=== PATIENT | male | born 1965 | race Caucasian/White ===

== ENCOUNTER 2018-05-13 17:25 | Emergency (ER) | payer OTHER ==
--- NOTE | 2018-05-13 18:43 | CT Report ---
Reason: "worst CLARKE of life" Procedure Date: 05/13/2018 Accession Number: [id number] / [id number] Procedure: CT - Head W/O CPT Code: FULL RESULT: EXAM: CT HEAD WITHOUT CONTRAST. EXAM DATE: 05/13/2018 06:31 PM. CLINICAL HISTORY: Worst headache of life, retro-orbital pain, since yesterday. COMPARISON: None. TECHNIQUE: Multiaxial CT images were obtained from the foramen magnum to the vertex. Reformats: Coronal. IV contrast: None. In accordance with CT protocol optimization, one or more of the following dose reduction techniques were utilized for this exam: automated exposure control, adjustment of mA and/or KV based on patient size, or use of iterative reconstructive technique. FINDINGS: Parenchyma: No intraparenchymal hemorrhage. No evidence of mass, midline shift, or CT findings of infarction. Jeter-white differentiation is distinct. Extraaxial Spaces: Normal for age. No subdural or epidural collections identified. Ventricles: Normal in size and position. Sinuses and Orbits: Imaged paranasal sinuses, orbits, and mastoids show no significant abnormality. Bones: No evidence of fracture or calvarial defect. Other: None. IMPRESSION: Normal head CT. RADIA
[2018-05-13 20:30] VITALS: BP 147/98
[2018-05-13] MEDS ORDERED: IBUPROFEN 600 MG TABLET PO STA (20:35)
[2018-05-13] MEDS ORDERED: ACETAMINOPHEN 500 MG TABLET PO STA (20:36)
--- NOTE | 2018-05-13 20:41 | ED Physician Documentation ---
PD HPI HEADACHE - Stated complaint Stated Complaint: HEADACHE - Chief complaint Chief Complaint: Neuro - History obtained from History obtained from: Patient - History of Present Illness Timing - onset: How many days ago (2) Timing - details: Gradual onset, Still present Location: Global Quality: Throbbing, Aching. No: Thunderclap, Like head is exploding Associated symptoms: No: Fever, Stiff neck, Nausea, Vomiting Similar symptoms before: Has not had sx before Recently seen: Not recently seen - Additional information Additional information: Patient is a 52 year old male with no significant past medical history who is presenting to the emergency department for headache. Patient states that he has been under a lot of stress over the last few days and he slowly developed a generalized headache. patient denies any fever, chills, neck pain, syncope, shortness of breath or neurological deficit. Review of Systems Ten Systems: 10 systems reviewed and negative Neurologic: reports: Headache. denies: Confused, Head injury, LOC PD PAST MEDICAL HISTORY - Past Medical History Cardiovascular: Hypertension Endocrine/Autoimmune: Type 2 diabetes - Past Surgical History Past Surgical History: Yes - Present Medications Home Medications: Ambulatory Orders Medication Instructions Recorded Confirmed Aspirin [Aspir-Low] 81 mg PO DAILY 12/24/15 12/24/15 Atorvastatin [Lipitor] 20 mg PO DAILY 12/24/15 12/24/15 Gabapentin [Neurontin] 300 mg PO DAILY 12/24/15 12/24/15 Ibuprofen [Motrin] 800 mg PO Q8H PRN #30 tablet 12/24/15 Lisinopril 20 mg PO DAILY 12/24/15 12/24/15 metFORMIN [Glucophage] 2,000 mg PO DAILY 12/24/15 12/24/15 - Allergies Allergies/Adverse Reactions: Allergies Allergy/AdvReac Type Severity Reaction Status Date / Time latex Allergy Unknown Rash Verified 01/13/13 17:31 - Social History Does the pt smoke?: No Smoking Status: Never smoker Does the pt drink ETOH?: No Does the pt have substance abuse?: No - Immunizations Immunizations: TDAP >10years/unknown PD ED PE NORMAL - Vitals Vital signs reviewed: Yes - General General: Alert and oriented X 3 - HEENT HEENT: Atraumatic, PERRL, Moist mucous membranes - Neck Neck: Supple, no meningeal sign - Cardiac Cardiac: RRR - Respiratory Respiratory: No respiratory distress - Abdomen Abdomen: Soft - Derm Derm: Normal color, Warm and dry - Extremities Extremities: No deformity - Neuro Neuro: Alert and oriented X 3, 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 Patient had already had a ct in triage that was within normal limits. Upon initial evaluation patient stated that he just wanted to go home and sleep there. Patient had no focal deficits, no menigeal signs or no history consistent with sub arachnoid hemorrhage. Patient was stable for discharge and outpatient follow up. - Sepsis Event Vital Signs: Vital Signs - 24 hr 05/13/18 05/13/18 17:34 20:28 Temperature 36.6 C Heart Rate 77 72 Respiratory 20 18 Rate Blood Pressure 140/83 H 147/98 H O2 Saturation 98 100 Oxygen O2 Source Room air Departure - Departure Disposition: 01 Home, Self Care Clinical Impression: Headache Condition: Good Instructions: ED Cephalgia Unspecified Follow-Up: VAN TOSCANO MD [Primary Care Provider] - Within 3 Days Comments: Two of the greatest triggers for headaches are dehydration and lack of sleep. It is important that you stay hydrated and get plenty of rest. you should take ibuprofen 600mg and tylenol 1000mg every 6 hours as needed for pain. You should follow up with your doctor if your symptoms don't improve. You may return to the emergency department at any time for new, worsening or uncontrollable symptoms. Forms: Activity restrictions
== END 2018-05-13 21:03 | disposition home or self-care (01) ==
LOC: ED 17:25
DX: R51 Headache (principal); I10 Essential (primary) hypertension; E11.9 Type 2 diabetes mellitus without complications; Z79.84 Long term (current) use of oral hypoglycemic drugs
CPT/HCPCS: 70450; 99283; A9270

== ENCOUNTER 2018-12-17 13:09 | Emergency (ER) | payer OTHER ==
--- NOTE | 2018-12-17 14:54 | ED Physician Documentation ---
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 The saw fell from the wall and a chain saw tooth lacerated his right cheek. The saw was not running. He did not have any involvement to his eye he has some scrapes to his face he was not knocked unconscious he is come in here now for repair. Review of Systems Constitutional: denies: Fever Eyes: denies: Decreased vision Ears: denies: Ear pain Nose: denies: Rhinorrhea / runny nose, Congestion Throat: denies: Sore throat Respiratory: denies: Cough GI: denies: Vomiting PD PAST MEDICAL HISTORY - Past Medical History Cardiovascular: Hypertension Endocrine/Autoimmune: Type 2 diabetes - Past Surgical History Past Surgical History: Yes - Present Medications Home Medications: Ambulatory Orders Medication Instructions Recorded Confirmed Aspirin [Aspir-Low] 81 mg PO DAILY 12/24/15 12/24/15 Atorvastatin [Lipitor] 20 mg PO DAILY 12/24/15 12/24/15 Lisinopril 20 mg PO DAILY 12/24/15 12/24/15 metFORMIN [Glucophage] 2,000 mg PO DAILY 12/24/15 12/24/15 Atenolol 50 mg DAILY 12/17/18 12/17/18 - Allergies Allergies/Adverse Reactions: Allergies Allergy/AdvReac Type Severity Reaction Status Date / Time latex Allergy Unknown Rash Verified 01/13/13 17:31 bee venom protein (honey bee) Allergy Anaphylaxis Verified 12/17/18 13:21 - Social History Does the pt smoke?: No Smoking Status: Never smoker Does the pt drink ETOH?: No Does the pt have substance abuse?: No - Immunizations Immunizations: TDAP >10years/unknown PD ED PE NORMAL - Vitals Vital signs reviewed: Yes (hypertnesive ) - General General: Alert and oriented X 3, No acute distress, Well developed/nourished - HEENT HEENT: PERRL, EOMI, Other (There is an abrasion to the right cheeck over the medial aspect of the upper cheek 1.5 cm and superficial. 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, No motor deficit, No sensory deficit, Normal speech Eye Opening: Spontaneous Motor: Obeys Commands Verbal: Oriented GCS Score: 15 - Psych Psych: Normal mood, Normal affect Results - Vitals Vitals: Vital Signs - 24 hr 12/17/18 13:13 Temperature 36.5 C Heart Rate 78 Respiratory 16 Rate Blood Pressure 132/92 H O2 Saturation 96 Oxygen O2 Source Room air Procedures - Laceration (location) right cheek Length in cm: 1.5 Wound type: Linear, Superficial, Clean Neurovascular status: Sensory intact, Motor intact, Vascular intact Wound Preparation: Wound explored, To the base Skin layer closure: Dermabond Other: Patient tolerated well, No complications, Neurovascular intact, Dressing applied, Tetanus UTD Complexity: Simple PD MEDICAL DECISION MAKING - ED course Complexity details: considered differential, d/w patient ED course: 53-year-old male with a laceration to his right cheek is fixed with Dermabond.He has previously been in the believes he is up-to-date on his immunizations. Departure - Departure Disposition: 01 Home, Self Care Clinical Impression: Facial laceration Qualifiers: Encounter type: initial encounter Qualified Code(s): S01.81XA - Laceration without foreign body of other part of head, initial encounter Condition: Stable Instructions: ED Laceration Facial Skin Glue Follow-Up: VAN TOSCANO MD [Primary Care Provider] -
[2018-12-17 15:09] VITALS: BP 128/88
== END 2018-12-17 15:07 | disposition home or self-care (01) ==
LOC: ED 13:09
DX: S01.411A Laceration without foreign body of right cheek and temporomandibular area, initial encounter (principal); W31.2XXA Contact with powered woodworking and forming machines, initial encounter; Y99.0 Civilian activity done for income or pay; I10 Essential (primary) hypertension; E11.9 Type 2 diabetes mellitus without complications; Z79.84 Long term (current) use of oral hypoglycemic drugs; Z79.82 Long term (current) use of aspirin
CPT/HCPCS: 12011; 99282; 99283